=== PATIENT | male | born 1985 | race Caucasian/White ===

== ENCOUNTER 2019-01-22 13:08 | Emergency (ER) | payer OTHER ==
[~2019-01-22] VITALS: Ht 182.9 cm; Wt 90.9 kg
[2019-01-22 13:10] VITALS: BP 133/91
[2019-01-22] MEDS ORDERED: IBUP-1986 PO (15:03)
== END 2019-01-22 15:35 | disposition home or self-care (01) ==
LOC: EDSEX 13:09 → ER 13:09
DX: S93.401A Sprain of unspecified ligament of right ankle, initial encounter (principal); M79.604 Pain in right leg; F17.200 Nicotine dependence, unspecified, uncomplicated; F12.90 Cannabis use, unspecified, uncomplicated; Z79.1 Long term (current) use of non-steroidal anti-inflammatories (NSAID); X58.XXXA Exposure to other specified factors, initial encounter; Y93.89 Activity, other specified; Y92.89 Other specified places as the place of occurrence of the external cause; Y99.8 Other external cause status
CPT/HCPCS: 73610; 99283